=== PATIENT | male | born 1950 ===

== ENCOUNTER 2022-04-29 05:40 | Observation (INO) ==
[2022-04-29] MEDS ORDERED: Buffered Lidocaine 1% SYRIN 1 ml INTRADERM ONE (06:00)
[2022-04-29] MEDS ORDERED: Lactated Ringers 1000 ml BAG 1,000 ML IV SCH ×2 (06:00→09:00)
[2022-04-29] MEDS ORDERED: ceFAZolin 2 GM PREMIX 2 GM/50 ML BAG ONE (06:10)
[2022-04-29] MEDS ORDERED: ROPIVACAINE 5 MG/ML 30 ML BTL (0.5%) ONE ×2 (06:56→07:08)
[2022-04-29] MEDS ORDERED: Midazolam 2 mg/2 ml VIAL 1 mg/ml 2 ml VIAL (2 mg) ONE ×2 (07:20→07:36)
[2022-04-29] MEDS ORDERED: Morphine 2 MG/ML SYRINGE IV PRN (08:06)
[2022-04-29] MEDS ORDERED: Magnesium Hydroxide LIQ 30 ML UDC PO PRN (08:06)
[2022-04-29] MEDS ORDERED: Lactulose 30 ml UDC PO PRN (08:06)
[2022-04-29] MEDS ORDERED: Magnesium Hydroxide LIQ 30 ML UDC PO SCH (09:00)
[2022-04-29] MEDS ORDERED: Vitamin THERAPEUTIC TAB PO SCH (09:00)
[2022-04-29] MEDS ORDERED: ceFAZolin 1 GM ADVAN 1 GM in NS 0.9% 50 ML 50 ML IVPB SCH ×2 (09:00→16:00)
[2022-04-29 13:18] VITALS: BP 163/91
== END 2022-04-29 16:30 | disposition home or self-care (01) ==
LOC: AA 05:40 → INTOOBSV 05:40 → SSU 08:06
PROVIDERS: ADMIT Orthopaedic Surgery Adult Reconstructive Orthopaedic Surgery; ATTEND Orthopaedic Surgery Adult Reconstructive Orthopaedic Surgery